=== PATIENT | female | born 1960 | race African-American/Black ===

== ENCOUNTER 2016-04-05 11:28 | Inpatient (IN) | payer OTHER ==
[2016-04-05 12:20] VITALS: BMI 21.2
--- NOTE | 2016-04-05 14:57 | HP ---
Admission [facility] Chief Complaint: REHAB TX FOR HEROIN AND ALCOHOL DEPENDENCE Allergies/Adverse Reactions: Allergies Allergy/AdvReac Type Severity Reaction Status Date / Time No Known Allergies Allergy Verified 04/05/16 13:59 History of Present Illness: 55 Y/O AA/FEMALE WITH A HX OF HEROIN AND ALCOHOL DEPENDENCE SEEKING REHAB TX. PT COMPLETED DETOX TODAY AT [facility] AND REFERRED HERE FOR REHAB. FIRST TIME HERE. Exam Limitations: No Limitations - Ebola screening Have you traveled outside of the country in the last 21 days: No Have you had contact with anyone from an Ebola affected area: No Have you been sick,other than usual withdrawal symptoms: No Do you have a fever: No - Review of Systems Constitutional: Chills, Loss of Appetite, Night Sweats, Changes in sleep, Unintentional Wgt. Loss EENT: reports: Blurred Vision (WEARS GLASSES,), Tearing, Nose Congestion, Dental Problems (UPPER/LOWER DENTURES) Respiratory: reports: Shortness of Breath (HX ASTHMA), Wheezing Cardiac: reports: Chest Pain (SOMETIMES BUT ON MED), Lightheadedness, Other (HX CAD) GI: reports: Constipated, Diarrhea, Nausea, Poor Appetite, Poor Fluid Intake, Vomiting, Abdominal cramping : reports: No Symptoms Reported Musculoskeletal: reports: Back Pain, Joint Pain, Muscle Pain Integumentary: reports: No Symptoms Reported Neuro: reports: Headache, Numbness, Tingling, Dizziness Endocrine: reports: No Symptoms Reported Hematology: reports: Anemia (TAKES IRON PILLS), Easy Bruising Psychiatric: reports: Orientated x3, Anxious Other Systems: Reviewed and Negative Patient History - Patient Medical History Hx Anemia: Yes (TAKES IRON PILLS) Hx Asthma: Yes (MDI) Hx Chronic Obstructive Pulmonary Disease (COPD): No Hx Cardiac Disorders: Yes Hx Hypertension: Yes (ON MED) Hx Hypercholesterolemia: Yes (ON MED) HX Cerebrovascular Accident: No Hx Seizures: No Hx Diabetes: No Hx Gastrointestinal Disorders: No Hx Genitourinary Disorders: No Hx Sexually Transmitted Disorders: No Hx Renal Disease (ESRD): No Hx Thyroid Disease: No Hx Human Immunodeficiency Virus (HIV): No (NEGATIVE HX) Hx Hepatitis C: No Hx Depression: No (BUT ANXIETY SOMETIMES DUE TO DRUG WITHDRAWALS) Hx Suicide Attempt: No (DENIES) Hx Bipolar Disorder: No Hx Schizophrenia: No - Patient Surgical History Past Surgical History: No Hx Neurologic Surgery: No Hx Cataract Extraction: No Hx Cardiac Surgery: No Hx Lung Surgery: No Hx Breast Surgery: No Hx Breast Biopsy: No Hx Abdominal Surgery: No Hx Appendectomy: No Hx Cholecystectomy: No Hx Genitourinary Surgery: No Hx Section: No Hx Orthopedic Surgery: No Hx Hysterectomy: No Anesthesia Reaction: No - PPD History Previous Implant?: Yes (AT [facility] DETOX-COPY IN CHART) Documented Results: Negative w/proof Implanted On Prior [facility] Admission?: No Date: 04/03/16 (DONE AT [facility] DETOX) Results: NEGATIVE PPD to be Administered?: No - Reproductive History Patient is a Female of Child Bearing Age (11 -55 yrs old): No (MENOPAUSAL WOMAN) LMP comment: 3-4 YRS AGO Patient : No - Smoking Cessation Smoking history: Current every day smoker Have you smoked in the past 12 months: Yes Aproximately how many cigarettes per day: 10 Hx Chewing Tobacco Use: No Initiated information on smoking cessation: Yes 'Breaking Loose' booklet given: 04/05/16 - Substance & Tx. History Hx Alcohol Use: Yes (MALT LIQUOR) Hx Substance Use: Yes (HEROIN) Substance Use Type: Alcohol, Heroin Hx Substance Use Treatment: Yes ([facility] DETOX--D/C'D TODAY) - Substances Abused Alcohol Route: Oral Frequency: Daily Amount used: 2-3 24 oz MALT LIQUOR Age of first use: 20 Date of Last Use: 03/31/16 Heroin Route: Inhalation Frequency: Daily Amount used: 10 BAGS Age of first use: 20 Date of Last Use: 03/31/16 Family Disease History - Family Disease History Family Disease History: Other: Grandparent (HTN), Father (HTN-), Mother (HTN-), Sister (HTN) Admission Physical Exam [facility] - Vital Signs Vital Signs: Vital Signs - 24 hr 04/05/16 12:17 Temperature 98.7 F Pulse Rate 78 Respiratory 18 Rate Blood Pressure 150/89 - Physical General Appearance: Yes: No Apparent Distress, Anxious HEENTM: Yes: EOMI, Normocephalic, RADHA, Pharynx Normal Respiratory: Yes: Chest Non-Tender, Lungs Clear, Normal Breath Sounds, No Respiratory Distress Neck: Yes: Supple, Trachea in good position Breast: Yes: Breast Exam Deferred Cardiology: Yes: Regular Rhythm, Regular Rate, S1, S2 Abdominal: Yes: Normal Bowel Sounds, Non Tender, Soft Genitourinary: Yes: Other (N/C) Musculoskeletal: Yes: full range of Motion, Gait Steady Extremities: Yes: Normal Range of Motion, Non-Tender Neurological: Yes: hall cleaner II-XII NML intact, Fully Oriented, Alert Integumentary: Yes: Dry, Warm Lymphatic: Yes: Within Normal Limits - Diagnostic (1) Alcohol dependence with uncomplicated withdrawal Current Visit: Yes Status: Chronic (2) Opioid dependence with withdrawal Current Visit: Yes Status: Chronic (3) HTN (hypertension) Current Visit: Yes Status: Chronic Qualifiers: Hypertension type: essential hypertension Qualified Code(s): I10 - Essential (primary) hypertension (4) Hypercholesterolemia Current Visit: Yes Status: Chronic (5) Hx of coronary artery disease Current Visit: Yes Status: Chronic (6) History of anemia Current Visit: Yes Status: Chronic (7) Asthma Current Visit: Yes Status: Chronic Qualifiers: Asthma severity: mild intermittent Asthma complication type: uncomplicated Qualified Code(s): J45.20 - Mild intermittent asthma, uncomplicated Cleared for Admission [facility] - Detox or Rehab Claeared for Rehab Admission: Yes [facility] Breath Alcohol Content Breath Alcohol Content: 0 Urine Pregancy Test - Result Urine Test Results: Negative- NO Line Present Urine Drug Screen - Results Drug Screen Negative: No Urine Drug Screen Results: OPI-Opiates, BZO-Benzodiazepines, MTD-Methadone
[2016-04-05] MEDS ORDERED: P-EPHED 60MG/TRIPROLIDI 2.5MG TABLET PO PRN (15:20)
[2016-04-05] MEDS ORDERED: guaiFENesin/D-METHORPHAN HB 10 ML UNIT-DOSE CUPS PO PRN (15:20)
[2016-04-05] MEDS ORDERED: ACETAMINOPHEN 325 MG TABLET (FP) PO PRN (15:20)
[2016-04-05] MEDS ORDERED: LOPERAMIDE HCL 2 MG CAPSULE PO PRN (15:20)
[2016-04-05] MEDS ORDERED: MENTHOL/PHENOL 1 EACH UD MM PRN (15:20)
[2016-04-05] MEDS ORDERED: IBUPROFEN 400 MG TABLET (FP) PO PRN (15:20)
[2016-04-05] MEDS ORDERED: MAGNESIUM HYDROX 2400MG/30ML ORAL SUSPENSION 30 ML CUP PO PRN (15:20)
[2016-04-05] MEDS ORDERED: MAGNESIUM CITRATE 300 ML BOTTLE PO PRN (15:20)
[2016-04-05] MEDS ORDERED: ALBUTEROL SO4 6.7 GM HFA INHALER IH PRN (15:21)
[2016-04-05] MEDS: NICOTINE 14 MG/24 HOURS TOPICAL PATCH TD SCH (21:29)
[2016-04-05] MEDS: CARVEDILOL 25 MG TABLET (FP) PO SCH (21:30)
[2016-04-05] MEDS: THIAMINE HCL 100 MG TABLET (FP) PO SCH (21:30)
[2016-04-05] MEDS: PATIENT'S OWN MEDICATION (NON-FORMULARY) (Simvastatin 40 MG) PO SCH (21:30)
[2016-04-05] MEDS: FERROUS SO4 325 MG TABLET (FP) PO SCH (21:31)
[2016-04-05] MEDS: diphenhydrAMINE HCL 50 MG CAPSULE PO PRN (23:14)
[2016-04-06 03:22] LABS: URINE APPEARANCE CLEAR; URINE BILIRUBIN NEGATIVE (NEGATIVE); URINE BLOOD NEGATIVE (NEGATIVE); URINE COLOR LTYELLOW; URINE GLUCOSE (UA) NEGATIVE (NEGATIVE); URINE KETONE NEGATIVE (NEGATIVE); URINE LEUK ESTERASE NEGATIVE (NEGATIVE); URINE NITRITE NEGATIVE (NEGATIVE); URINE PROTEIN NEGATIVE (NEGATIVE); URINE UROBILINOGEN NEGATIVE E.U./dl (0.2-1.0)
[2016-04-06] MEDS ORDERED: PT OWN MED DRAWER 7, Y5N ONE ×2 (09:35→20:29)
[2016-04-06] MEDS: CARVEDILOL 25 MG TABLET (FP) PO SCH ×2 (09:49→21:39)
[2016-04-06] MEDS: ASPIRIN COATED 81 MG TABLET.EC PO SCH (09:49)
[2016-04-06] MEDS: ISOSORBIDE MONONITRATE 60 MG TAB.SR.24H (FP) PO SCH (09:50)
[2016-04-06] MEDS: FERROUS SO4 325 MG TABLET (FP) PO SCH ×2 (09:50→21:38)
[2016-04-06] MEDS: HYDROCHLOROTHIAZIDE 12.5 MG CAPSULE (FP) PO SCH (09:50)
[2016-04-06] MEDS: NICOTINE 14 MG/24 HOURS TOPICAL PATCH TD SCH (09:51)
[2016-04-06] MEDS: PRENATAL VITAMINS W/ FOLIC ACID TABLET (FP) PO SCH (09:51)
[2016-04-06] MEDS: ENALAPRIL MALEATE 10 MG TABLET (FP) PO SCH (09:52)
[2016-04-06] MEDS: PYRIDOXINE HCL (B-6) 50 MG TABLET (FP) PO SCH (09:53)
[2016-04-06 11:06] LABS: MCH 28.1 pg (25.7-33.7); MCHC 32.1 g/dl (32.0-36.0); MEAN CELL VOLUME 87.4 fl (80-96); MEAN PLT VOLUME 10.4 fl (7.5-11.1); PLATELET COUNT 170 K/MM3 (134-434); RDW 14.3 % (11.6-15.6); WHITE BLOOD COUNT 4.9 K/mm3 (4.0-10.0)
[2016-04-06 11:14] LABS: ALBUMIN 3.9 g/dl (3.4-5.0); ANION GAP 8 (8-16); CALCIUM 9.7 mg/dL (8.5-10.1); CO2 28 mmol/L (21-32); GLUCOSE,RANDOM 120 mg/dL (74-106); SGOT/AST 23 U/L (15-37); SGPT/ALT 30 U/L (12-78)
[2016-04-06 11:17] LABS: ALK PHOS 83 U/L (45-117); BILIRUBIN,TOTAL 0.2 mg/dL (0.2-1.0); CREATININE 0.9 mg/dL (0.55-1.02); TOT PROT 7.5 g/dl (6.4-8.2)
[2016-04-06] MEDS ORDERED: PNEUMOC 13-VAL CONJ-DIP CRM/PF 0.5 ML DISP.SYRIN IM ONE (12:00)
[2016-04-06] MEDS ORDERED: PNEUMOCOCCAL 23 VACCINE 0.5 ML VIAL IM ONE (12:00)
--- NOTE | 2016-04-06 13:37 | EKG ---
Test Reason : Blood Pressure : / mmHG Vent. Rate : 073 BPM Atrial Rate : 073 BPM P-R Int : 190 ms QRS Dur : 090 ms QT Int : 404 ms P-R-T Axes : 067 035 020 degrees QTc Int : 445 ms NORMAL SINUS RHYTHM NONSPECIFIC ST ABNORMALITY NO PREVIOUS ECGS AVAILABLE Confirmed by DONNA MITCHELL MD ([id number]) on 04/06/2016 1:36:34 PM Referred By: Debbie Barr Confirmed By:DONNA MITCHELL MD
[2016-04-06] MEDS: hydrOXYzine PAMOATE 25 MG CAPSULE (FP) PO PRN ×2 (15:35→21:39)
[2016-04-06] MEDS: NICOTINE POLACRILEX 2 MG GUM BC PRN ×2 (15:41→21:41)
[2016-04-06] MEDS: PATIENT'S OWN MEDICATION (NON-FORMULARY) (Simvastatin 40 MG) PO SCH (21:39)
[2016-04-06] MEDS: THIAMINE HCL 100 MG TABLET (FP) PO SCH (21:39)
[2016-04-07] MEDS: MAG HYDROX/AL HYDROX/SIMETH 30 ML UNIT-DOSE CUP PO PRN ×2 (06:34→18:57)
[2016-04-07] MEDS: ONDANSETRON *ODT* 4 MG TABLET SL PRN (08:02)
[2016-04-07] MEDS ORDERED: PT OWN MED DRAWER 7, Y5N ONE ×4 (08:23→21:31)
[2016-04-07] MEDS: NICOTINE 14 MG/24 HOURS TOPICAL PATCH TD SCH (09:28)
[2016-04-07] MEDS: CARVEDILOL 25 MG TABLET (FP) PO SCH ×2 (09:28→21:35)
[2016-04-07] MEDS: FERROUS SO4 325 MG TABLET (FP) PO SCH ×2 (09:28→21:35)
[2016-04-07] MEDS: HYDROCHLOROTHIAZIDE 12.5 MG CAPSULE (FP) PO SCH (09:28)
[2016-04-07] MEDS: PYRIDOXINE HCL (B-6) 50 MG TABLET (FP) PO SCH (09:28)
[2016-04-07] MEDS: PRENATAL VITAMINS W/ FOLIC ACID TABLET (FP) PO SCH (09:28)
[2016-04-07] MEDS: ENALAPRIL MALEATE 10 MG TABLET (FP) PO SCH ×2 (09:28→21:35)
[2016-04-07] MEDS: ISOSORBIDE MONONITRATE 60 MG TAB.SR.24H (FP) PO SCH (09:28)
[2016-04-07] MEDS: ASPIRIN COATED 81 MG TABLET.EC PO SCH (09:29)
[2016-04-07] MEDS ORDERED: INFLUENZA VACCINE 45 MCG/0.5 ML (MDV 16-17) IM ONE (12:00)
[2016-04-07] MEDS: TRIMETHOBENZAMIDE HCL 200MG/2ML INJ IM PRN ×2 (13:09→21:57)
[2016-04-07] MEDS ORDERED: NITROGLYCERIN SUBLINGUAL 1/150 0.4 MG TAB SL ONE (17:28)
[2016-04-07] MEDS ORDERED: amLODIPine BESYLATE 5 MG TABLET (FP) PO ONE (17:29)
--- NOTE | 2016-04-07 17:39 | PN ---
[facility] Progress Note (SOAP) Subjective: Pt. c/o left sided chest pain.She has hx. of CHF on meds,has previous hx. of chest pain off & on. Objective: 04/07/16 17:36 Vital Signs - 8 hr 04/07/16 04/07/16 13:41 17:11 Temperature 98.4 F Pulse Rate 51 L 63 Respiratory 16 19 Rate Blood Pressure 155/86 181/98 Laboratory Tests 04/05/16 04/06/16 04/06/16 23:13 07:50 07:50 WBC 4.9 RBC 4.43 Hgb 12.4 Hct 38.7 MCV 87.4 MCHC 32.1 RDW 14.3 Plt Count 170 MPV 10.4 Sickle Cell Screen Sodium 141 Potassium 4.6 Chloride 105 Carbon Dioxide 28 Anion Gap 8 BUN 15 Creatinine 0.9 Creat Clearance w eGFR > 60 Random Glucose 120 H Calcium 9.7 Total Bilirubin 0.2 AST 23 ALT 30 Alkaline Phosphatase 83 Total Protein 7.5 Albumin 3.9 Urine Color Ltyellow Urine Appearance Clear Urine pH 5.0 Ur Specific [place] 1.015 Urine Protein Negative Urine Glucose (UA) Negative Urine Ketones Negative Urine Blood Negative Urine Nitrite Negative Urine Bilirubin Negative Urine Urobilinogen Negative Ur Leukocyte Esterase Negative RPR Titer 04/06/16 04/06/16 07:50 07:50 WBC RBC Hgb Hct MCV MCHC RDW Plt Count MPV Sickle Cell Screen Negative Sodium Potassium Chloride Carbon Dioxide Anion Gap BUN Creatinine Creat Clearance w eGFR Random Glucose Calcium Total Bilirubin AST ALT Alkaline Phosphatase Total Protein Albumin Urine Color Urine Appearance Urine pH Ur Specific [place] Urine Protein Urine Glucose (UA) Urine Ketones Urine Blood Urine Nitrite Urine Bilirubin Urine Urobilinogen Ur Leukocyte Esterase RPR Titer Nonreactive Lungs : Clear to A&P Heart : RR, no murmur EKG NSR normal EKG when compared to previous EKG, no change Assessment: 04/07/16 17:39 Non specific chest pain Uncontrolled HTN Plan: EKG Norvasc Enalapril BID NTG .4mg sl stat repeat bp in one hour
[2016-04-07] MEDS: PATIENT'S OWN MEDICATION (NON-FORMULARY) (Simvastatin 40 MG) PO SCH (21:35)
[2016-04-07] MEDS: THIAMINE HCL 100 MG TABLET (FP) PO SCH (21:35)
[2016-04-07] MEDS: amLODIPine BESYLATE 5 MG TABLET (FP) PO SCH (21:35)
[2016-04-07] MEDS: diphenhydrAMINE HCL 50 MG CAPSULE PO PRN (21:41)
[2016-04-08] MEDS ORDERED: PT OWN MED DRAWER 7, Y5N ONE ×3 (08:45→21:38)
[2016-04-08] MEDS: ONDANSETRON *ODT* 4 MG TABLET SL PRN (09:10)
[2016-04-08] MEDS: CARVEDILOL 25 MG TABLET (FP) PO SCH ×2 (09:22→21:39)
[2016-04-08] MEDS: ENALAPRIL MALEATE 10 MG TABLET (FP) PO SCH ×2 (09:22→21:41)
[2016-04-08] MEDS: PRENATAL VITAMINS W/ FOLIC ACID TABLET (FP) PO SCH (09:22)
[2016-04-08] MEDS: FERROUS SO4 325 MG TABLET (FP) PO SCH ×2 (09:22→21:42)
[2016-04-08] MEDS: ASPIRIN COATED 81 MG TABLET.EC PO SCH (09:22)
[2016-04-08] MEDS: ISOSORBIDE MONONITRATE 60 MG TAB.SR.24H (FP) PO SCH (09:22)
[2016-04-08] MEDS: HYDROCHLOROTHIAZIDE 12.5 MG CAPSULE (FP) PO SCH (09:23)
[2016-04-08] MEDS: NICOTINE 14 MG/24 HOURS TOPICAL PATCH TD SCH (09:23)
[2016-04-08] MEDS: amLODIPine BESYLATE 5 MG TABLET (FP) PO SCH ×2 (10:24→21:42)
[2016-04-08] MEDS: PYRIDOXINE HCL (B-6) 50 MG TABLET (FP) PO SCH (10:24)
--- NOTE | 2016-04-08 10:42 | HP ---
Psychiatrist Admission - Data Date of interview: 04/08/16 Admission source: [facility] Identifying data: This the first admission to [address] [place] [address] this 55 yeasr old AA single female [facility]resides with daughter,unemployed. Medical History: Significant for BA,HTN,Hyperlipidemia,CAD. Psychiatric History: Reports sleeping difficulties on and off mostly when withdrawing from heroin,prescribed Trazodone in the past while in drug treatment. Physical/Sexual Abuse/Trauma History: denies Vital Signs: Vital Signs - 24 hr 04/07/16 04/07/16 04/07/16 13:41 17:11 18:28 Temperature 98.4 F Pulse Rate 51 L 63 60 Respiratory 16 19 18 Rate Blood Pressure 155/86 181/98 197/103 04/07/16 04/07/16 04/07/16 18:32 21:35 22:51 Temperature 99.1 F 98.7 F Pulse Rate 60 62 67 Respiratory 18 16 16 Rate Blood Pressure 179/103 187/115 173/111 04/08/16 04/08/16 04/08/16 03:30 07:24 09:19 Temperature 98.5 F 98.8 F Pulse Rate 56 L 75 Respiratory 16 18 17 Rate Blood Pressure 134/83 158/115 Allergies/Adverse Reactions: Allergies Allergy/AdvReac Type Severity Reaction Status Date / Time No Known Allergies Allergy Verified 04/05/16 13:59 Date of last physical exam: 04/05/16 Concur with the findings of this exam: Yes - Substance Abuse/Tx History Hx Alcohol Use: Yes (reports drinking on and off since young age) Hx Substance Use: Yes (reports snorting heroin since her ,10 bags daily) Substance Use Type: Heroin Hx Substance Use Treatment: Yes (completed [facility] in 2006) - Admission Criteria Previous failed treatment: Yes Poor recovery environment: Yes Comorbidities: Yes Lacks judgement: Yes Mental Status Exam - Mental Status Exam Alert and Oriented to: Time, Place, Person Patient Appearance: Unkempt Mood: Sad, Nervous Affect: Labile Patient Behavior: Crying, Cooperative Speech Pattern: Clear Voice Loudness: Normal Thought Process: Goal Oriented Thought Disorder: Not Present Hallucinations: Denies Suicidal Ideation: Denies Homicidal Ideation: Denies Insight/Judgement: Fair Sleep: Difficulty falling asleep Appetite: Poor, Weight loss Muscle strength/Tone: Normal Gait/Station: Normal Psychiatric Findings - Problem List ([place] 1, 2,3) (1) Asthma Current Visit: Yes Status: Chronic Qualifiers: Asthma severity: mild intermittent Asthma complication type: uncomplicated Qualified Code(s): J45.20 - Mild intermittent asthma, uncomplicated (2) HTN (hypertension) Current Visit: Yes Status: Chronic Qualifiers: Hypertension type: essential hypertension Qualified Code(s): I10 - Essential (primary) hypertension (3) History of anemia Current Visit: Yes Status: Chronic (4) Hx of coronary artery disease Current Visit: Yes Status: Chronic (5) Hypercholesterolemia Current Visit: Yes Status: Chronic (6) Opioid dependence with withdrawal Current Visit: Yes Status: Chronic (7) Substance induced mood disorder Current Visit: Yes Status: Chronic - Initial Treatment Plan Initial Treatment Plan: Trazodone 50 mg po hs.Will monitor progress.
--- NOTE | 2016-04-08 12:04 | EKG ---
Test Reason : Blood Pressure : / mmHG Vent. Rate : 061 BPM Atrial Rate : 061 BPM P-R Int : 180 ms QRS Dur : 088 ms QT Int : 422 ms P-R-T Axes : 074 041 048 degrees QTc Int : 424 ms NORMAL SINUS RHYTHM NORMAL ECG WHEN COMPARED WITH ECG OF 05-APR-2016 22:04, NO SIGNIFICANT CHANGE WAS FOUND Confirmed by CLEO EVANS MD ([id number]) on 04/08/2016 12:04:04 PM Referred By: Debbie Barr Confirmed By:CLEO EVANS MD
--- NOTE | 2016-04-08 13:11 | PN ---
S Progress Note Note: Poor appetite,nausea & vomiting,BP is unstable because pt. had not taken meds in many weeks. Vital Signs - 24 hr 04/07/16 04/07/16 04/07/16 13:41 17:11 18:28 Temperature 98.4 F Pulse Rate 51 L 63 60 Respiratory 16 19 18 Rate Blood Pressure 155/86 181/98 197/103 04/07/16 04/07/16 04/07/16 18:32 21:35 22:51 Temperature 99.1 F 98.7 F Pulse Rate 60 62 67 Respiratory 18 16 16 Rate Blood Pressure 179/103 187/115 173/111 04/08/16 04/08/16 04/08/16 03:30 07:24 09:19 Temperature 98.5 F 98.8 F Pulse Rate 56 L 75 Respiratory 16 18 17 Rate Blood Pressure 134/83 158/115 04/08/16 12:04 Temperature Pulse Rate 71 Respiratory Rate Blood Pressure 139/98 Laboratory Last Values WBC 4.9 K/mm3 (4.0-10.0) 04/06/16 07:50 RBC 4.43 M/mm3 (3.60-5.2) 04/06/16 07:50 Hgb 12.4 GM/dL (10.7-15.3) 04/06/16 07:50 Hct 38.7 % (32.4-45.2) 04/06/16 07:50 MCV 87.4 fl (80-96) 04/06/16 07:50 MCHC 32.1 g/dl (32.0-36.0) 04/06/16 07:50 RDW 14.3 % (11.6-15.6) 04/06/16 07:50 Plt Count 170 K/MM3 (134-434) 04/06/16 07:50 MPV 10.4 fl (7.5-11.1) 04/06/16 07:50 Sickle Cell Screen Negative (NEGATIVE) 04/06/16 07:50 Sodium 141 mmol/L (136-145) 04/06/16 07:50 Potassium 4.6 mmol/L (3.5-5.1) 04/06/16 07:50 Chloride 105 mmol/L (98-107) 04/06/16 07:50 Carbon Dioxide 28 mmol/L (21-32) 04/06/16 07:50 Anion Gap 8 (8-16) 04/06/16 07:50 BUN 15 mg/dL (7-18) 04/06/16 07:50 Creatinine 0.9 mg/dL (0.55-1.02) 04/06/16 07:50 Creat Clearance w eGFR > 60 (>60) 04/06/16 07:50 Random Glucose 120 mg/dL (74-106) H 04/06/16 07:50 Calcium 9.7 mg/dL (8.5-10.1) 04/06/16 07:50 Total Bilirubin 0.2 mg/dL (0.2-1.0) 04/06/16 07:50 AST 23 U/L (15-37) 04/06/16 07:50 ALT 30 U/L (12-78) 04/06/16 07:50 Alkaline Phosphatase 83 U/L (45-117) 04/06/16 07:50 Total Protein 7.5 g/dl (6.4-8.2) 04/06/16 07:50 Albumin 3.9 g/dl (3.4-5.0) 04/06/16 07:50 Urine Color Ltyellow 04/05/16 23:13 Urine Appearance Clear 04/05/16 23:13 Urine pH 5.0 (5.0-8.0) 04/05/16 23:13 Ur Specific [place] 1.015 (1.001-1.035) 04/05/16 23:13 Urine Protein Negative (NEGATIVE) 04/05/16 23:13 Urine Glucose (UA) Negative (NEGATIVE) 04/05/16 23:13 Urine Ketones Negative (NEGATIVE) 04/05/16 23:13 Urine Blood Negative (NEGATIVE) 04/05/16 23:13 Urine Nitrite Negative (NEGATIVE) 04/05/16 23:13 Urine Bilirubin Negative (NEGATIVE) 04/05/16 23:13 Urine Urobilinogen Negative E.U./dl (0.2-1.0) 04/05/16 23:13 Ur Leukocyte Esterase Negative (NEGATIVE) 04/05/16 23:13 RPR Titer Nonreactive (NONREACTIVE) 04/06/16 07:50 repeat labs with amylase & lipase & ammonia levels. d/c hctz, order dyazide
[2016-04-08] MEDS: TRIAMTERENE AND HCTZ - 37.5 MG/25 MG CAPSULE PO SCH (14:10)
[2016-04-08] MEDS: traZODone HCL 50 MG TABLET (FP) PO SCH (21:38)
[2016-04-08] MEDS: PATIENT'S OWN MEDICATION (NON-FORMULARY) (Simvastatin 40 MG) PO SCH (21:39)
[2016-04-08] MEDS: THIAMINE HCL 100 MG TABLET (FP) PO SCH (21:39)
[2016-04-09 09:56] LABS: CALCIUM 10.2 mg/dL (8.5-10.1)
[2016-04-09 09:59] LABS: CREATININE 1.2 mg/dL (0.55-1.02)
[2016-04-09 10:00] LABS: MCH 27.9 pg (25.7-33.7); MCHC 32.2 g/dl (32.0-36.0); MEAN CELL VOLUME 86.8 fl (80-96); MEAN PLT VOLUME 9.7 fl (7.5-11.1); PLATELET COUNT 180 K/MM3 (134-434)
[2016-04-09] MEDS: PRENATAL VITAMINS W/ FOLIC ACID TABLET (FP) PO SCH (10:09)
[2016-04-09] MEDS: PYRIDOXINE HCL (B-6) 50 MG TABLET (FP) PO SCH (10:10)
[2016-04-09] MEDS: FERROUS SO4 325 MG TABLET (FP) PO SCH ×2 (10:10→22:29)
[2016-04-09] MEDS: ASPIRIN COATED 81 MG TABLET.EC PO SCH (10:10)
[2016-04-09] MEDS: amLODIPine BESYLATE 5 MG TABLET (FP) PO SCH ×2 (10:10→21:36)
[2016-04-09] MEDS: CARVEDILOL 25 MG TABLET (FP) PO SCH ×2 (10:11→22:29)
[2016-04-09] MEDS: ISOSORBIDE MONONITRATE 60 MG TAB.SR.24H (FP) PO SCH (10:11)
[2016-04-09] MEDS: NICOTINE 14 MG/24 HOURS TOPICAL PATCH TD SCH (10:11)
[2016-04-09] MEDS: NICOTINE POLACRILEX 2 MG GUM BC PRN ×2 (10:13→21:37)
[2016-04-09] MEDS ORDERED: PT OWN MED DRAWER 7, Y5N ONE ×4 (10:13→23:30)
[2016-04-09] MEDS: TRIAMTERENE AND HCTZ - 37.5 MG/25 MG CAPSULE PO SCH (10:13)
[2016-04-09] MEDS: ENALAPRIL MALEATE 10 MG TABLET (FP) PO SCH ×2 (10:15→22:35)
[2016-04-09] MEDS: ONDANSETRON *ODT* 4 MG TABLET SL PRN (12:01)
--- NOTE | 2016-04-09 13:37 | PN ---
[facility] Progress Note Note: Pt. continues to have nausea & vomiting,feels weak with poor appetite. Vital Signs - 8 hr 04/09/16 04/09/16 07:39 09:25 Temperature 97.9 F Pulse Rate 85 73 Respiratory 18 Rate Blood Pressure 116/91 131/91 Laboratory Results - last 24 hr 04/09/16 04/09/16 04/09/16 07:00 07:00 07:00 WBC 6.0 RBC 5.27 H Hgb 14.7 D Hct 45.8 H D MCV 86.8 MCHC 32.2 RDW 14.0 Plt Count 180 MPV 9.7 Sodium 134 L Potassium 4.2 Chloride 95 L Carbon Dioxide 28 Anion Gap 11 BUN 32 H D Creatinine 1.2 H D Random Glucose 161 H D Calcium 10.2 H Ammonia 23 Total Amylase 149 H Lipase 274 Laboratory Tests 04/05/16 04/06/16 04/06/16 23:13 07:50 07:50 WBC 4.9 RBC 4.43 Hgb 12.4 Hct 38.7 MCV 87.4 MCHC 32.1 RDW 14.3 Plt Count 170 MPV 10.4 Sickle Cell Screen Sodium 141 Potassium 4.6 Chloride 105 Carbon Dioxide 28 Anion Gap 8 BUN 15 Creatinine 0.9 Creat Clearance w eGFR > 60 Random Glucose 120 H Calcium 9.7 Total Bilirubin 0.2 AST 23 ALT 30 Alkaline Phosphatase 83 Ammonia Total Protein 7.5 Albumin 3.9 Total Amylase Lipase Urine Color Ltyellow Urine Appearance Clear Urine pH 5.0 Ur Specific [place] 1.015 Urine Protein Negative Urine Glucose (UA) Negative Urine Ketones Negative Urine Blood Negative Urine Nitrite Negative Urine Bilirubin Negative Urine Urobilinogen Negative Ur Leukocyte Esterase Negative RPR Titer 04/06/16 04/06/16 04/09/16 07:50 07:50 07:00 WBC 6.0 RBC 5.27 H Hgb 14.7 D Hct 45.8 H D MCV 86.8 MCHC 32.2 RDW 14.0 Plt Count 180 MPV 9.7 Sickle Cell Screen Negative Sodium Potassium Chloride Carbon Dioxide Anion Gap BUN Creatinine Creat Clearance w eGFR Random Glucose Calcium Total Bilirubin AST ALT Alkaline Phosphatase Ammonia Total Protein Albumin Total Amylase Lipase Urine Color Urine Appearance Urine pH Ur Specific [place] Urine Protein Urine Glucose (UA) Urine Ketones Urine Blood Urine Nitrite Urine Bilirubin Urine Urobilinogen Ur Leukocyte Esterase RPR Titer Nonreactive 04/09/16 04/09/16 07:00 07:00 WBC RBC Hgb Hct MCV MCHC RDW Plt Count MPV Sickle Cell Screen Sodium 134 L Potassium 4.2 Chloride 95 L Carbon Dioxide 28 Anion Gap 11 BUN 32 H D Creatinine 1.2 H D Creat Clearance w eGFR Random Glucose 161 H D Calcium 10.2 H Total Bilirubin AST ALT Alkaline Phosphatase Ammonia 23 Total Protein Albumin Total Amylase 149 H Lipase 274 Urine Color Urine Appearance Urine pH Ur Specific [place] Urine Protein Urine Glucose (UA) Urine Ketones Urine Blood Urine Nitrite Urine Bilirubin Urine Urobilinogen Ur Leukocyte Esterase RPR Titer amylase is elevated but lipase is wnl, mild electrolyte imbalance noted. Dx. : Pacreatitis,presumed Electrolyte Imbalance P : Transfer to ED for hydration,evaluation for possible admission Report given to Dr. Laguerre
[2016-04-09] MEDS: traZODone HCL 50 MG TABLET (FP) PO SCH (21:36)
[2016-04-09] MEDS: THIAMINE HCL 100 MG TABLET (FP) PO SCH (21:36)
[2016-04-09] MEDS: PATIENT'S OWN MEDICATION (NON-FORMULARY) (Simvastatin 40 MG) PO SCH (22:35)
[2016-04-10] MEDS ORDERED: PT OWN MED DRAWER 7, Y5N ONE ×5 (08:32→23:14)
[2016-04-10] MEDS: PRENATAL VITAMINS W/ FOLIC ACID TABLET (FP) PO SCH (10:05)
[2016-04-10] MEDS: ASPIRIN COATED 81 MG TABLET.EC PO SCH (10:05)
[2016-04-10] MEDS: FERROUS SO4 325 MG TABLET (FP) PO SCH ×2 (10:05→21:29)
[2016-04-10] MEDS: PYRIDOXINE HCL (B-6) 50 MG TABLET (FP) PO SCH (10:06)
[2016-04-10] MEDS: NICOTINE 14 MG/24 HOURS TOPICAL PATCH TD SCH (10:06)
[2016-04-10] MEDS: CARVEDILOL 25 MG TABLET (FP) PO SCH ×2 (10:07→21:29)
[2016-04-10] MEDS: amLODIPine BESYLATE 5 MG TABLET (FP) PO SCH ×2 (10:07→21:30)
[2016-04-10] MEDS: TRIAMTERENE AND HCTZ - 37.5 MG/25 MG CAPSULE PO SCH (10:07)
[2016-04-10] MEDS: ISOSORBIDE MONONITRATE 60 MG TAB.SR.24H (FP) PO SCH (10:07)
[2016-04-10] MEDS: ENALAPRIL MALEATE 10 MG TABLET (FP) PO SCH ×2 (10:07→21:28)
[2016-04-10] MEDS: THIAMINE HCL 100 MG TABLET (FP) PO SCH (21:28)
[2016-04-10] MEDS: PATIENT'S OWN MEDICATION (NON-FORMULARY) (Simvastatin 40 MG) PO SCH (21:29)
[2016-04-10] MEDS: traZODone HCL 50 MG TABLET (FP) PO SCH (21:29)
[2016-04-11 06:54] VITALS: TEMP 98.3
[2016-04-11 09:10] VITALS: BP 90/61; PULSE 64
[2016-04-11] MEDS: FERROUS SO4 325 MG TABLET (FP) PO SCH (09:18)
[2016-04-11] MEDS: PYRIDOXINE HCL (B-6) 50 MG TABLET (FP) PO SCH (09:18)
[2016-04-11] MEDS: ASPIRIN COATED 81 MG TABLET.EC PO SCH (09:19)
[2016-04-11] MEDS: amLODIPine BESYLATE 5 MG TABLET (FP) PO SCH (09:19)
[2016-04-11] MEDS: PRENATAL VITAMINS W/ FOLIC ACID TABLET (FP) PO SCH (09:19)
[2016-04-11] MEDS: ENALAPRIL MALEATE 10 MG TABLET (FP) PO SCH (09:19)
[2016-04-11] MEDS: TRIAMTERENE AND HCTZ - 37.5 MG/25 MG CAPSULE PO SCH (09:20)
[2016-04-11] MEDS: NICOTINE 14 MG/24 HOURS TOPICAL PATCH TD SCH (09:20)
[2016-04-11] MEDS: CARVEDILOL 25 MG TABLET (FP) PO SCH (09:20)
[2016-04-11] MEDS: ISOSORBIDE MONONITRATE 60 MG TAB.SR.24H (FP) PO SCH (09:20)
--- NOTE | 2016-04-19 14:00 | PN ---
[facility] Progress Note Note: Patient decided to sign out AMA 04/11/16 .She was stable on d/c day.See staff notes for details.
== END 2016-04-11 09:40 | disposition left against medical advice (07) | DRG 770 ==
LOC: YASAS 11:28 → Y3E 14:39
PROVIDERS: ADMIT Psychiatry & Neurology Psychiatry; ATTEND Psychiatry & Neurology Psychiatry
PROC: HZ42ZZZ Group Counseling for Substance Abuse Treatment, Cognitive-Behavioral (ICD-10-PCS; principal; 2016-04-11)
DX: F11.23 Opioid dependence with withdrawal (principal); F10.230 Alcohol dependence with withdrawal, uncomplicated; F19.24 Other psychoactive substance dependence with psychoactive substance-induced mood disorder; I25.10 Atherosclerotic heart disease of native coronary artery without angina pectoris; I10 Essential (primary) hypertension; E78.00 Pure hypercholesterolemia, unspecified; J45.20 Mild intermittent asthma, uncomplicated; D64.9 Anemia, unspecified
CPT/HCPCS: 36415; 80048; 80053; 81003; 82140; 82150; 83690; 85027; 85660; 86593; 90732; 93005; 93010; G0009

== ENCOUNTER 2016-04-09 14:30 | Emergency (ER) | payer OTHER ==
[2016-04-09 14:44] VITALS: BMI 19.8
--- NOTE | 2016-04-09 14:44 | PDOC ---
ED Treatment Course - LABORATORY CBC & Chemistry Diagram: 04/09/16 15:08 04/09/16 15:08 Medical Decision Making - Medical Decision Making 04/09/16 14:40 Rapid Medical triage: Pt comes from [facility] for diarrhea and vomting. SHe is detoxing from heroin; she had done detox in the past, but never had these symptoms. She has asthma, CHF, HTN, cholesterol. Heart [id number]; Afebrile; Lungs:Clear No crackles or rales Pt will require hydration and basic labs in the ER. IV Pepcid and IV Zofran *DC/Admit/Observation/Transfer Diagnosis at time of Disposition: Dehydration - Discharge Dispostion Disposition: I.P. ALCOHOL/SUBS ABUSE REHAB Condition at time of disposition: Improved - Referrals Referrals: [facility] [Provider Group] - Patient Instructions Printed Discharge Instructions: DI for Dehydration -- Adult Additional Instructions: Return to the emergency department immediately with ANY new, persistent or worsening symptoms. You MUST call and follow up with your doctor tomorrow for further evaluation of your symptoms. Results were discussed with you. Please make sure your doctor reviews the results of your emergency evaluation. If you had any xrays during your visit, it was read preliminarily by myself, a Radiologist will review it and if there are any additional findings we will call you. Print Language: CHADIAN
[2016-04-09] MEDS ORDERED: SODIUM CHLORIDE 1,000 ML IV ONE ×2 (15:01→17:33)
[2016-04-09] MEDS ORDERED: METOCLOPRAMIDE HCL INJECTION 10 MG/2 ML VIAL IVPUSH ONE (15:01)
[2016-04-09] MEDS ORDERED: FAMOTIDINE 20 MG/50 ML IVPB 20 MG in PREMIX 50 IVPB ONE (15:02)
[2016-04-09] MEDS ORDERED: MAG HYDROX/AL HYDROX/SIMETH 355 ML ORAL.SUSP PO ONE (15:02)
--- NOTE | 2016-04-09 15:03 | PDOC ---
History of Present Illness - General History Source: Patient Exam Limitations: No Limitations - History of Present Illness Initial Comments: 04/09/16 16:53 The patient is a 55 year old female, with a significant past medical history of substance abuse (heroine), asthma, CHF, HTN, high cholesterol, and past MS (few years ago) who presents to the emergency department from [facility] with diarrhea , nausea, and vomiting (yellow; nonbloody) since friday. She reports having abdominal pain recently due to the excess vomiting. [facility] reports finishing detoxing from heroin 5 days ago and has detoxed in the past w/o similar symptoms. She reports being in rehab since detoxing has had trouble eating with a loss of appetite.She denies recent fevers, chills, headache or dizziness. She denies recent diarrhea or constipation. Pt notes mild pain in the abdomen but she attributes it to her wretching/vomiting, no current abodminal pain. Allergies: NKA Past surgical history: None reported Social history: See HPI PCP: None Reported. <Arvind Roy - Last Filed: 04/09/16 16:53> <Rodolfo Farrell - Last Filed: 04/09/16 19:20> - General Chief Complaint: Pain, Acute Stated Complaint: Nausea Time Seen by Provider: 04/09/16 14:40 Past History <Arvind Roy - Last Filed: 04/09/16 16:53> - Past Medical History Anemia: Yes (TAKES IRON PILLS) Asthma: Yes Cardiac Disorders: No CVA: No COPD: No Diabetes: No GI Disorders: No Disorders: No HTN: Yes Hypercholesterolemia: Yes Kidney Stones: No Suicide Attempt (Hx): No Seizures: No Thyroid Disease: No - Surgical History Abdominal Surgery: No Appendectomy: No Cardiac Surgery: No Cholecystectomy: No Lung Surgery: No Neurologic Surgery: No Orthopedic Surgery: No - Reproductive History PID: No - Psycho/Social/Smoking Cessation Hx Anxiety: No Suicidal Ideation: No Smoking History: Current every day smoker Have you smoked in the past 12 months: Yes Number of Cigarettes Smoked Daily: 5 Information on smoking cessation initiated: Yes 'Breaking Loose' booklet given: 04/09/16 Hx Alcohol Use: No Drug/Substance Use Hx: Yes (herion) Substance Use Type: Heroin Hx Substance Use Treatment: Yes (completed [facility] in 2006) <Rodolfo Farrell - Last Filed: 04/09/16 19:20> - Past Medical History Allergies/Adverse Reactions: Allergies Allergy/AdvReac Type Severity Reaction Status Date / Time No Known Allergies Allergy Verified 04/09/16 14:39 Home Medications: Ambulatory Orders Albuterol Sulfate Inhaler - [Ventolin Hfa Inhaler -] 2 inh PO Q4H PRN 04/05/16 Aspirin [ASA -] 81 mg PO DAILY 04/05/16 Carvedilol [Coreg -] 25 mg PO BID 04/05/16 Enalapril Maleate [Vasotec] 20 mg PO DAILY 04/05/16 Ferrous Sulfate [Feosol] 325 mg PO BID 04/05/16 Hydrochlorothiazide [Hctz -] 12.5 mg PO DAILY 04/05/16 Isosorbide Mononitrate [Isosorbide Mononitrate ER] 60 mg PO DAILY 04/05/16 Pyridoxine HCl [Vitamin B-6] 50 mg PO DAILY 04/05/16 Simvastatin [Zocor -] 40 mg PO HS 04/05/16 Trazodone HCl [Desyrel -] 50 mg PO HS #30 tablet 04/09/16 Abd/GI Specific PMHX - Complaint Specific PMHX Hepatitis: No Pancreatitis: No <Rodolfo Farrell - Last Filed: 04/09/16 19:20> Review of Systems - Review of Systems Able to Perform ROS?: Yes Comments:: 04/09/16 16:53 CONSTITUTIONAL: +Weakness and Loss of Appetite. No reported: Fever, Chills, Diaphoresis, Generalized Weakness, Malaise HEENT: No reported: Rhinorrhea, Nasal Congestion, Throat Pain, Throat Swelling, Difficulty Swallowing, Mouth Swelling, Ear Pain, Eye Pain, Visual Changes CARDIOVASCULAR: No reported: Chest Pain, Syncope, Palpitations, Irregular Heart Rate, Lightheadedness, Peripheral Edema RESPIRATORY: No reported: Cough, Shortness of Breath, SOB with Exertion, Orthopnea, Wheezing , Stridor, Hemoptysis GASTROINTESTINAL: +Abdominal pain, Nausea, Vomiting, Diarrhea No reported: Constipation, Melena, Hematochezia GENITOURINARY: No reported: Dysuria, Frequency, Urgency, Hesitancy, Flank Pain, Genital Pain MUSCULOSKELETAL: No reported: Myalgia, Arthralgia, Joint Swelling, Back pain, Neck Pain SKIN: No reported: Rash, Itching, Pallor HEMEATOLOGIC/IMMUNOLOGIC: No reported: Easy Bleeding, Easy Bruising, Lymphadenopathy, Frequent infections ENDOCRINE: No reported: Unexplained Weight Gain, Unexplained Weight Loss, Heat Intolerance , Cold Intolerance NEUROLOGIC: No reported: Headache, Focal Weakness, Paresthesias, Vertigo, Lightheadedness, Unsteady Gait, Seizure, Mental Status Changes, Incontinence PSYCHIATRIC: No reported: Anxiety, Depression <Arvind Roy - Last Filed: 04/09/16 16:53> *Physical Exam - Vital Signs Last Vital Signs Temp Pulse Resp BP Pulse Ox 98.3 F 75 18 101/76 100 04/09/16 14:40 04/09/16 14:40 04/09/16 14:40 04/09/16 14:40 04/09/16 14:40 - Physical Exam Comments: 04/09/16 16:54 GENERAL: The patient is awake, alert, and fully oriented, Nontoxic - in no acute distress. HEAD: Normocephalic, atraumatic. EYES: extraocular movements intact, sclera anicteric, conjunctiva clear. ENT: Normal voice, Mildly dry mucous membranes. NECK: Normal range of motion, supple LUNGS: Breath sounds equal, clear to auscultation bilaterally. No wheezes, no rhonchi, no rales. HEART: Regular rate and rhythm, without murmur, rub or gallop. ABDOMEN: Soft, nontender, normoactive bowel sounds. No guarding, no rebound.No CVA tenderness EXTREMITIES: Normal range of motion, no edema. No clubbing or cyanosis. No cords , erythema, or tenderness. NEUROLOGICAL: No facial asymmetry, Normal speech. PSYCH: Normal mood, normal affect. SKIN: Warm, Dry, normal turgor. <Arvind Roy - Last Filed: 04/09/16 16:53> - Vital Signs Last Vital Signs Temp Pulse Resp BP Pulse Ox 98.3 F 75 18 101/76 100 04/09/16 14:40 04/09/16 14:40 04/09/16 14:40 04/09/16 14:40 04/09/16 14:40 <Rodolfo Farrell - Last Filed: 04/09/16 19:20> Heart Score/ECG Review - ECG Impressions Comment:: 04/09/16 17:56 Twelve-lead EKG was performed and reviewed by me. There is normal sinus rhythm with a rate of [address]-T wave changes <Rodolfo Farrell - Last Filed: 04/09/16 19:20> ED Treatment Course - LABORATORY CBC & Chemistry Diagram: 04/09/16 15:08 04/09/16 15:08 - ADDITIONAL ORDERS Additional order review: Laboratory Results 04/09/16 15:08 Sodium 134 L Potassium 4.6 Chloride 96 L Carbon Dioxide 29 Anion Gap 9 BUN 38 H Creatinine 1.2 H Creat Clearance w eGFR 46.30 Random Glucose 110 H D Calcium 10.7 H Magnesium 2.6 H Total Bilirubin 0.7 D AST 37 D ALT 47 D Alkaline Phosphatase 89 Total Protein 8.5 H Albumin 4.2 Lipase 243 04/09/16 15:08 RBC 5.24 H MCV 84.4 MCHC 32.5 RDW 13.8 MPV 9.4 Neutrophils % 49.0 Lymphocytes % 39.9 Monocytes % 9.8 Eosinophils % 0.4 Basophils % 0.9 - Medications Given in the ED: ED Medications Discontinued Medications Generic Name Dose Route Start Last Admin Trade Name Freq PRN Reason Stop Dose Admin Al Hydroxide/Mg Hydroxide 30 ml 04/09/16 15:02 04/09/16 15:27 Mylanta Suspension - PO 04/09/16 15:03 30 ml ONCE ONE Administration Sodium Chloride 1,000 mls @ 1,000 mls/hr 04/09/16 15:01 04/09/16 15:19 Normal Saline - IV 04/09/16 16:00 1,000 mls/hr .Q1H ONE Administration Famotidine/Sodium Chloride 20 50 mls @ 100 mls/hr 04/09/16 15:02 04/09/16 15:28 mg/ Miscellaneous IVPB 04/09/16 15:31 100 mls/hr ONCE ONE Administration Metoclopramide HCl 10 mg 04/09/16 15:01 04/09/16 15:27 Reglan Injection - IVPUSH 04/09/16 15:02 10 mg ONCE ONE Administration <Arvind Roy - Last Filed: 04/09/16 16:53> - LABORATORY CBC & Chemistry Diagram: 04/09/16 15:08 04/09/16 15:08 <Rodolfo Farrell - Last Filed: 04/09/16 19:20> Medical Decision Making - Medical Decision Making 04/09/16 17:31 55y F presenting with vomiting, intermittent abd pain after vomiting, no fever/ chills, diarrhea. on exam the pt well appaering, mildly dry mucus membranes, abd soft nontender. pts labs reviewed - c/w dehydration pt feeling much better after 1L of NS. pt able to tolerate oral intake will dc back to rehab. A portion of this note was documented by scribe services under my direction. I have reviewed the details of the note, within reason, and agree with the documentation with the following case summary and management plan written by me <Rodolfo Farrell - Last Filed: 04/09/16 19:20> *DC/Admit/Observation/Transfer - Attestations Scribe Attestion: 04/09/16 16:54 Documentation prepared by Arvind Roy, acting as medical laboratory assistant for Rodolfo Farrell MD. <Arvind Roy - Last Filed: 04/09/16 16:53> - Discharge Dispostion Admit: No <Rodolfo Farrell - Last Filed: 04/09/16 19:20> Diagnosis at time of Disposition: Dehydration - Discharge Dispostion Disposition: I.P. ALCOHOL/SUBS ABUSE REHAB Condition at time of disposition: Improved - Referrals Referrals: [facility] [Provider Group] - Patient Instructions Printed Discharge Instructions: DI for Dehydration -- Adult Additional Instructions: Return to the emergency department immediately with ANY new, persistent or worsening symptoms. You MUST call and follow up with your doctor tomorrow for further evaluation of your symptoms. Results were discussed with you. Please make sure your doctor reviews the results of your emergency evaluation. If you had any xrays during your visit, it was read preliminarily by myself, a Radiologist will review it and if there are any additional findings we will call you. Print Language: AFGHAN
[2016-04-09] MEDS ORDERED: FAMOTIDINE 20 MG/50 ML IVPB 50 ML IVPB ONE (15:20)
[2016-04-09] MEDS ORDERED: MAG HYDROX/AL HYDROX/SIMETH 30 ML UNIT-DOSE CUP ONE (15:20)
[2016-04-09] MEDS ORDERED: METOCLOPRAMIDE HCL INJECTION 10 MG/2 ML VIAL ONE (15:20)
[2016-04-09 15:45] LABS: BASOPHIL 0.9 % (0-2.0); EOSINOPHIL 0.4 % (0-4.5); MCH 27.5 pg (25.7-33.7); MCHC 32.5 g/dl (32.0-36.0); MEAN CELL VOLUME 84.4 fl (80-96); MEAN PLT VOLUME 9.4 fl (7.5-11.1); PLATELET COUNT 202 K/MM3 (134-434); RDW 13.8 % (11.6-15.6); WHITE BLOOD COUNT 7.8 K/mm3 (4.0-10.0)
[2016-04-09 15:57] LABS: ALBUMIN 4.2 g/dl (3.4-5.0); BILIRUBIN,TOTAL 0.7 mg/dL (0.2-1.0); CALCIUM 10.7 mg/dL (8.5-10.1); CREATININE 1.2 mg/dL (0.55-1.02); MAGNESIUM 2.6 mg/dL (1.8-2.4); TOT PROT 8.5 g/dl (6.4-8.2)
[2016-04-09 17:14] LABS: URINE APPEARANCE CLEAR; URINE BILIRUBIN NEGATIVE (NEGATIVE); URINE BLOOD NEGATIVE (NEGATIVE); URINE COLOR STRAW; URINE GLUCOSE (UA) NEGATIVE (NEGATIVE); URINE KETONE NEGATIVE (NEGATIVE); URINE LEUK ESTERASE NEGATIVE (NEGATIVE); URINE NITRITE NEGATIVE (NEGATIVE); URINE PROTEIN NEGATIVE (NEGATIVE); URINE UROBILINOGEN NEGATIVE E.U./dl (0.2-1.0)
[2016-04-09 19:48] VITALS: BP 141/96; PULSE 60; TEMP 98.9
--- NOTE | 2016-04-10 13:48 | EKG ---
Test Reason : Blood Pressure : / mmHG Vent. Rate : 051 BPM Atrial Rate : 051 BPM P-R Int : 160 ms QRS Dur : 088 ms QT Int : 444 ms P-R-T Axes : 061 045 066 degrees QTc Int : 409 ms SINUS BRADYCARDIA OTHERWISE NORMAL ECG WHEN COMPARED WITH ECG OF 07-APR-2016 17:10, NO SIGNIFICANT CHANGE WAS FOUND Confirmed by ANDRES CABRERA MD ([id number]) on 04/10/2016 1:47:48 PM Referred By: Confirmed By:ANDRES CABRERA MD
== END 2016-04-09 20:23 | disposition other institution (70) ==
LOC: JER 14:30
PROC: 3E0337Z Introduction of Electrolytic and Water Balance Substance into Peripheral Vein, Percutaneous Approach (ICD-10-PCS; principal; 2016-04-09)
PROC: 3E033GC Introduction of Other Therapeutic Substance into Peripheral Vein, Percutaneous Approach (ICD-10-PCS; 2016-04-09)
DX: E86.0 Dehydration (principal); I25.2 Old myocardial infarction; I10 Essential (primary) hypertension; F17.210 Nicotine dependence, cigarettes, uncomplicated; I50.9 Heart failure, unspecified; E78.00 Pure hypercholesterolemia, unspecified; F11.20 Opioid dependence, uncomplicated
CPT/HCPCS: 36415; 80053; 81003; 83690; 83735; 85025; 93005; 93010; 96361; 96365; 96375; 99284-25